=== PATIENT | female | born 1970 ===

== ENCOUNTER → 2018-06-15 21:14 | Outpatient (REF) | payer OTHER, SELFPAY ==
[2018-06-15 22:22] LABS: Add Manual Diff / Slide Review NO; Basophils Percent Auto 1.1 % (0-2); Hematocrit 40.7 % (36-46); Hemoglobin 13.6 g/dL (12.0-16.0); Mean Corpuscular HGB Conc 33.5 % (30-36); Mean Corpuscular Hemoglobin 32.6 PG (26-34); Mean Corpuscular Volume 97.1 fL (80-100); Neutrophils Absolute Auto 1700 /uL (3000-5900); Neutrophils Percent Auto 45.9 % (50-75); Platelet Count 247 X10^3/uL (150-400); Red Blood Cell Count 4.19 X10^6/uL (4.0-5.2); Red Cell Distribution Width 13.1 % (11.6-14.8); White Blood Cell Count 3.8 X10^3/uL (4.5-11.0)
[2018-06-15 22:37] LABS: Alanine Aminotransferase 30 IU/L (9-52); Albumin 4.7 g/dL (3.5-5.0); Albumin Globulin Ratio 1.7 (1.0-2.8); Alkaline Phosphatase 57 U/L (38-126); Aspartate Aminotransferase 25 IU/L (14-36); Bilirubin Total 0.5 mg/dL (0.2-1.3); Blood Urea Nitrogen 12 mg/dL (7-17); Calcium 9.8 mg/dL (8.4-10.2); Carbon Dioxide 25 mmol/L (22-32); Chloride 109 mmol/L (98-107); Cholesterol 132 mg/dL (140-199); Estimated Glomerular Filt Rate > 60.0 mL/min (>60); Globulin 2.7 g/dL (1.7-4.1); Glucose 89 mg/dL (70-100); HDL Cholesterol 73 mg/dL (40-60); HEMOLYSIS < 15 (0-50); LDL Cholesterol Calculated 45 mg/dL (<100); Potassium 4.7 mmol/L (3.4-5.1); Sodium 146 mmol/L (137-145); Total Protein 7.4 g/dL (6.3-8.2); Triglycerides 71 mg/dL (35-150)
[2018-06-15 23:28] LABS: HEMOLYSIS < 15 (0-50); Iron 206 ug/dL (37-170)
[2018-06-15 23:39] LABS: Percent Iron Saturation 77 % (15-50); Total Iron Binding Capacity 267 ug/dL (265-497); Transferrin 231 mg/dL (206-381)
[2018-06-16] LABS: Thyroid Stimulating Hormone 2.01 uIU/mL (0.47-4.68)
== END ==
LOC: LAB 21:14
PROVIDERS: Visit Provider Family Medicine
DX: Z00.00 Encounter for general adult medical examination without abnormal findings (principal)
CPT/HCPCS: 36415; 80053; 80061; 83540; 83550; 84443; 85025

== ENCOUNTER → 2018-07-12 20:46 | Outpatient (REF) | payer OTHER, SELFPAY | LOC: LAB 20:46 | PROVIDERS: Visit Provider Family Medicine | DX: E83.19 Other disorders of iron metabolism (principal) | CPT/HCPCS: 36415; 81256 ==